=== PATIENT | male | born 1995 | race African-American/Black ===

== ENCOUNTER 2025-03-18 13:46 | Emergency (ER) | payer MEDICAID ==
[~2025-03-18] VITALS: Ht 190.5 cm; Wt 105.0 kg
[2025-03-18 13:55] VITALS: O2SAT 97
[2025-03-18] MEDS: HYDROCODONE/ACETAMINOPHEN 10/325MG TABLET PO ONE (15:29)
[2025-03-18] MEDS ORDERED: IBUP-2029 MT (15:46)
[2025-03-18] MEDS ORDERED: TOPUD PO (15:46)
[2025-03-18 16:25] VITALS: BP 122/60; PULSE 61; RESP 18; TEMP 36.9; O2SAT 97
== END 2025-03-18 16:28 | disposition home or self-care (01) ==
LOC: ER 13:46
DX: S86.011A Strain of right Achilles tendon, initial encounter (principal); X58.XXXA Exposure to other specified factors, initial encounter; Y93.02 Activity, running; Y92.89 Other specified places as the place of occurrence of the external cause; Y99.8 Other external cause status
CPT/HCPCS: 99283; 29515; 73600; A6449

== ENCOUNTER 2025-06-14 17:54 | Emergency (ER) | payer MEDICAID, OTHER ==
[~2025-06-14] VITALS: Ht 182.9 cm; Wt 85.0 kg
[~2025-06-14 17:54] MED LIST: IBUP-2029 MT; TOPUD PO
[2025-06-14 17:56] VITALS: TEMP 37; O2SAT 99
[2025-06-14] MEDS ORDERED: IBUP-2030 MT (19:00)
[2025-06-14 20:05] VITALS: BP 131/64; PULSE 56; RESP 20; O2SAT 99
== END 2025-06-14 20:07 ==
LOC: ER 17:54
DX: S86.001A Unspecified injury of right Achilles tendon, initial encounter (principal); X58.XXXA Exposure to other specified factors, initial encounter; Y93.89 Activity, other specified; Y92.89 Other specified places as the place of occurrence of the external cause; Y99.8 Other external cause status
CPT/HCPCS: 99283; 29515; A6449